=== PATIENT | male | born 1995 | race Caucasian/White ===

== ENCOUNTER 2022-01-01 11:16 | Emergency (ER) | payer OTHER ==
[2022-01-01 12:02] VITALS: BP 123/70; PULSE 88; RESP 18; TEMP 98.2; BMI 30.5
[2022-01-01] MEDS ORDERED: IBUPROFEN 400 MG TABLET (FP) PO ONE ×2 (13:49→13:54)
== END 2022-01-01 14:21 | disposition home or self-care (01) ==
LOC: JERFT 11:16 → JER 11:16 → JERFT 14:21
DX: R07.9 Chest pain, unspecified (principal)
CPT/HCPCS: 71046-TC-FY; 93005; 93010; 99284-25

== ENCOUNTER 2023-01-16 19:48 | Emergency (ER) | payer OTHER ==
[2023-01-16 19:56] VITALS: BP 149/83; PULSE 67; RESP 18; TEMP 98.3; BMI 28.8
[2023-01-16] MEDS ORDERED: KETOROLAC TROMETHAMINE 30 MG/1 ML VIAL IM ONE (20:52)
[2023-01-16] MEDS ORDERED: CYCLOBENZAPRINE HCL 10 MG TABLET (FP) PO ONE (20:52)
[2023-01-16] MEDS ORDERED: LIDOCAINE 5% TOPICAL PATCH TP ONE (20:52)
[2023-01-16] MEDS ORDERED: LIDOCAINE 4% PATCH TP ONE (20:57)
[2023-01-16] MEDS ORDERED: KETOROLAC TROMETHAMINE 30 MG/1 ML VIAL ONE (20:57)
[2023-01-16] MEDS ORDERED: CYCLOBENZAPRINE HCL 10 MG TABLET (FP) ONE (20:57)
[2023-01-16 21:09] LABS: BASO % 0.8 % (0-2.0); EOS % 0.9 % (0-4.5); HEMATOCRIT 40.7 % (35.4-49); HEMOGLOBIN 13.9 GM/dL (11.7-16.9); LYMPH % 32.7 % (8-40); MCH 29.6 pg (25.7-33.7); MCHC 34.2 g/dl (32.0-35.9); MEAN CELL VOLUME 86.6 fl (80-96); MEAN PLT VOLUME 8.1 fl (7.5-11.1); MONO % 8.1 % (3.8-10.2); NEUT % 57.5 % (42.8-82.8); PLATELET COUNT 179 10^3/uL (134-434); RDW 13.9 % (11.9-15.9); WHITE BLOOD COUNT 6.5 K/mm3 (4.0-10.0)
[2023-01-16] MEDS ORDERED: LIDOCAINE PATCH REMOVAL MC ONE (22:00)
[2023-01-16 22:45] LABS: POTASSIUM 3.9 mmol/L (3.5-5.1)
[2023-01-16 22:47] LABS: BLOOD UREA NITROGEN 11.5 mg/dL (7-18); CALCIUM 8.2 mg/dL (8.5-10.1)
[2023-01-16 22:51] LABS: CREATININE 1.4 mg/dL (0.55-1.3)
== END 2023-01-16 22:46 | disposition home or self-care (01) ==
LOC: JERFT 19:48
PROC: 3E0233Z Introduction of Anti-inflammatory into Muscle, Percutaneous Approach (ICD-10-PCS; principal; 2023-01-16)
DX: R07.89 Other chest pain (principal)
CPT/HCPCS: 36415; 71046-TC-FY; 80048; 84484; 85025; 93005; 93010; 99285-25

== ENCOUNTER 2023-02-25 19:35 | Emergency (ER) | payer OTHER ==
[2023-02-25 19:58] VITALS: BP 134/71; PULSE 105; RESP 20; TEMP 98.7; BMI 28.8
== END 2023-02-25 22:52 | disposition home or self-care (01) ==
LOC: JERFT 19:35
DX: J06.9 Acute upper respiratory infection, unspecified (principal); B34.9 Viral infection, unspecified; J10.1 Influenza due to other identified influenza virus with other respiratory manifestations; R05.9 Cough, unspecified; R50.9 Fever, unspecified; M79.10 Myalgia, unspecified site; R51.9 Headache, unspecified; R07.0 Pain in throat; Z20.822 Contact with and (suspected) exposure to COVID-19
CPT/HCPCS: 0241U-QW; 99283-25